=== PATIENT | female | born 1970 | race Two or more races ===

== ENCOUNTER → 2024-08-07 | Outpatient (CLI) | payer MEDICAID, SELFPAY ==
--- NOTE | 2024-08-07 08:38 | XR_ITS ---
Examination: Bilateral hands, 6 views. 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
--- NOTE | 2024-08-07 08:38 | XR_ITS ---
Examination: Bilateral wrists 6 views TECHNIQUE: AP oblique lateral each wrist total 6 views Exam date and time: August 07, 2024 at 0921 hours INDICATIONS: Bilateral wrist pain one year, history right wrist surgery for carpal tunnel ago FINDINGS: Moderate osteopenia Bilateral mild narrowing radiocarpal intercarpal and carpometacarpal joints No erosive arthritis No acute fracture involving either wrist No avascular necrosis IMPRESSION: Bilateral mild narrowing radiocarpal, intercarpal and carpometacarpal joints. No erosive arthritis
== END | disposition home or self-care (01) ==
LOC: CDIM 08:29
PROVIDERS: PCP Family Medicine
DX: M19.042 Primary osteoarthritis, left hand (principal); M19.041 Primary osteoarthritis, right hand; M25.842 Other specified joint disorders, left hand; M25.841 Other specified joint disorders, right hand; M25.832 Other specified joint disorders, left wrist; M25.831 Other specified joint disorders, right wrist
CPT/HCPCS: 73110; 73130

== ENCOUNTER 2025-02-12 15:02 | Emergency (ER) | payer MEDICAID, SELFPAY ==
[2025-02-12 15:03] VITALS: BMI 34.2
[2025-02-12 15:43] VITALS: BP 147/82; PULSE 86; RESP 18; TEMP 36.8; O2SAT 98
--- NOTE | 2025-02-12 15:44 | XR_ITS ---
Examination: Duplex scan of the lower extremity, unilateral left complete Date and time of exam: February 11, 2025 1555 hours INDICATIONS: Left leg pain onset today Technique: Duplex scan of the extremity veins using B-mode/grayscale imaging and Doppler spectral analysis and color flow Attention is directed to internal echogenicity, compression and augmentation involving these veins, color flow assessment, spectral analysis Findings: Major deep venous structures in the extremity demonstrate normal course and caliber. There is no evidence of deep vein thrombosis. Normal color flow and spectral analysis Impression: Negative for DVT..
--- NOTE | 2025-02-12 15:44 | XR_ITS ---
Examination: Knee, left , 3 views Technique: Knee AP, lateral, oblique 3 views Date and time of exam: February 12, 2025, 1645 hours indications INDICATIONS: Patient fell today with injury of the knee, knee pain. FINDINGS: No fracture. Widening of the medial joint space seen with damage to the medial collateral ligament Small knee effusion IMPRESSION: Suspicious for tear or strain of medial collateral ligament, consider elective MRI knee without contrast follow-up
--- NOTE | 2025-02-12 15:45 | PD.EDLOWEX ---
Lower Extremity Injury RME/HPI General Chief Complaint: Extremity Injury, Lower Stated Complaint: L) KNEE COLLAPSED AT WORK TODAY Time Seen by Provider: 02/12/25 15:13 Arrival date/time: 02/12/25 15:02 This is a case of a 54-year-old female who came into the emergency room due to left knee pain and left leg pain history of present illness started patient have on and off pain of the left knee seen by primary care physician x-ray was performed and noted to be normal due to worsening of pain now with pain in the left leg and swelling this patient decided to start consult here in the emergency room denies any injury or trauma Limitations: no limitations Related Data Home Medications ?Medication ?Instructions ?Recorded ?Confirmed estradiol 0.5 mg tablet 0.5 mg PO QDAY 11/25/22 11/25/22 lisinopril 40 mg tablet 40 mg PO QDAY 11/25/22 11/25/22 medroxyprogesterone 5 mg tablet 5 mg PO QDAY 11/25/22 11/25/22 omega 9-nnj-rxf-fish oil 1,200 mg 1 cap PO DAILY 11/25/22 11/25/22 (144 mg-216 mg) capsule (Fish Oil) omeprazole 20 mg capsule,delayed 20 mg PO QDAY 11/25/22 11/25/22 release kiyvjarm-yuu-Qb-FA 1 mg 1 tab PO DAILY 11/25/22 11/25/22 tablet venlafaxine 75 mg capsule,extended 75 mg PO QDAY 11/25/22 11/25/22 release 24 hr (Effexor XR) Previous Rx's ?Medication ?Instructions ?Recorded acetaminophen 500 mg tablet 2 tab PO QIDPRN PRN Pain or fever 08/25/17 (Acetaminophen Extra Strength) #30 tabs meclizine 25 mg tablet 25 mg PO QID PRN dizziness #20 tabs 04/26/23 tramadol 50 mg tablet 50 mg PO Q8H PRN pain #10 tabs 02/12/25 Allergies Allergy/AdvReac Type Severity Reaction Status Date / Time No Known Allergies Allergy Verified 02/12/25 15:06 Review of Systems Constitutional Constitutional: Reports system reviewed and no additional complaints, except as documented, Reports as per HPI, Denies chills and Denies fever(s) ENT Ears, Nose, Mouth, and Throat: Denies neck pain Cardiovascular Cardiovascular: Reports system reviewed and no additional complaints, except as documented, Reports as per HPI, Denies chest pain and Denies dyspnea Respiratory Respiratory: Reports system reviewed and no additional complaints, except as documented, Reports as per HPI and Denies dyspnea Gastrointestinal Gastrointestinal: Reports system reviewed and no additional complaints, except as documented, Reports as per HPI, Denies abdominal pain, Denies nausea and Denies vomiting Genitourinary Genitourinary: Reports system reviewed and no additional complaints, except as documented and Reports as per HPI Musculoskeletal Musculoskeletal: Reports system reviewed and no additional complaints, except as documented, Reports as per HPI, Denies abnormal gait, Denies arthralgias, Denies atrophy, Denies back pain, Denies deformity, Denies joint swelling, Denies limited range of motion, Denies loss of height, Denies muscle cramps, Denies muscle weakness, Denies myalgias, Denies neck pain, Denies numbness, Denies radiating pain into limb, Denies stiffness and Denies tingling Neurologic Neurologic: Reports system reviewed and no additional complaints, except as documented, Reports as per HPI, Denies abnormal gait, Denies numbness and Denies tingling Past Medical History Past Medical History NEUROLOGIC: Negative Neurological Disorders or Seizures CARDIAC: Positive Cardiac Disorders and Hypertension; Negative Congestive Heart Failure RESPIRATORY: Negative Chronic Obstructive Pulmonary Disease (COPD) GASTROINTESTINAL: Negative Gastrointestinal Disorders GENITOURINARY: Negative Genitourinary Disorders or Renal Disease REPRODUCTIVE: Positive Previous Pregnancies MUSCULOSKELETAL: Negative Musculoskeletal Disorders ENDOCRINE: Negative Endocrine Disorders, Diabetes Mellitus Type 1 or Diabetes Mellitus Type 2 HEMATOLOGIC: Negative Blood Disorders PSYCHO/SOCIAL: Positive Depression and Anxiety OTHER HISTORY: Positive Hospitalization (surgery); Negative Autoimmune Disease, Blood Transfusions, Blood Transfusion Reaction, Anesthesia Reactions or Cancer Family History FAMILY HISTORY: Positive Family Surgery; Negative Family Psychiatric Problems, Family Respiratory Disorders, Family Cardiac Disorders, Family Gastrointestinal Problems, Family Cancer or Family Anesthesia Reaction Surgical History SURGICAL: Positive Section (2) Social History SMOKING STATUS: Never smoker ED Exam General Limitations: Present no limitations General appearance: Present alert, in no apparent distress and other (Patient is awake alert oriented not in distress nontoxic looking) Head Head exam: Present atraumatic, normocephalic and normal inspection Eye Eye exam: Present normal appearance, PERRL and EOMI ENT ENT exam: Present normal exam, normal oropharynx and mucous membranes moist Neck Neck exam: Present normal inspection, full ROM and trachea midline; Absent tenderness, meningismus or lymphadenopathy Chest Chest inspection: Present normal inspection and symmetric chest wall rise; Absent tenderness, rash or abscess Respiratory Respiratory exam: Present normal lung sounds bilaterally; Absent respiratory distress, wheezes, stridor, accessory muscle use or prolonged expiratory phase Cardiovascular Cardiovascular exam: Present regular rate and normal rhythm; Absent bradycardia, tachycardia, normal heart sounds, systolic murmur or diastolic murmur Abdominal Exam Abdominal exam: Present soft and normal bowel sounds; Absent distention, tenderness, guarding, rebound or rigidity Extremities Exam Extremities exam: Present normal inspection and full ROM Expanded Lower Extremity Exam Hip/Pelvis exam: Present normal inspection and full ROM; Absent tenderness or swelling Upper leg exam: Present normal inspection and full ROM; Absent tenderness or swelling Knee exam: Present tenderness (Noted moderate tenderness on the left anterior knee no prepatellar tenderness no swelling), swelling (Mild swelling on the left anterior knee) and other (ROM limited pulses were full and equal capillary refill less than 2 seconds sensory reflex normal); Absent abrasion, laceration, ecchymosis, deformity, crepitus, dislocation, erythema, effusion, anterior drawer sign, posterior draw sign, pain with valgus, laxity with valgus, pain with varus, laxity with varus or knee extension intact Lower leg exam: Present normal inspection, full ROM, tenderness (Mild tenderness on the left anterior leg), swelling (Mild swelling noted) and other (No calf tenderness negative Bunch signs); Absent abrasion, laceration, ecchymosis, deformity, crepitus, dislocation, erythema, palpable cord, Homans' sign or Achilles tendon intact Back Exam Back exam: Present normal inspection and full ROM Neurological Exam Neurological exam: Present alert, oriented X3, CN II-XII intact, normal gait and reflexes normal; Absent motor sensory deficit Psychiatric Psychiatric exam: Present normal affect and normal mood Skin Skin exam: Present warm, dry, intact and normal color Course Quality Measures none Orders Category Date Time Status Apply knee immobilizer NOW Care 02/12/25 17:50 Active US venous doppler LE LT Stat Exams 02/12/25 15:44 Completed XR knee LT 3V Stat Exams 02/12/25 15:44 Taken HYDROcodone*/APAP 5/325 [Homer 5/325] Med 02/12/25 15:44 Discontinued 1 tab PO X1 ONE Ketorolac Inj [Toradol Inj] Med 02/12/25 15:44 Discontinued 60 mg IM X1 ONE Vital Signs Vital signs: Vital Signs Temperature 98.2 F 02/12/25 15:43 Pulse Rate 86 02/12/25 15:43 Respiratory Rate 18 02/12/25 15:43 Blood Pressure 147/82 H 02/12/25 15:43 Pulse Oximetry (%) 98 02/12/25 15:43 Oxygen Delivery Method Room Air 02/12/25 15:43 Patient is afebrile not tachycardic not tachypneic BP stable not hypoxic oxygen saturation is 98% in room air Extremity Injury, Lower MDM Narrative MDM Narrative:: This is a case of a 54-year-old female who came into the emergency room due to left knee pain and left leg pain history of present illness started patient have on and off pain of the left knee seen by primary care physician x-ray was performed and noted to be normal due to worsening of pain now with pain in the left leg and swelling this patient decided to start consult here in the emergency room denies any injury or trauma physical examination patient is awake alert oriented not in distress not toxic looking patient noted to have tenderness on the anterior side of the left knee no prepatellar tenderness no swelling with mild swelling of the anterior left knee no crepitation no deformity no redness ROM limited pulses were full and equal capillary refill less than 2 seconds leg exam is normal no tenderness no swelling no calf tenderness negative Homans signs negative Bunch sign patient venous ultrasound is negative for DVT x-ray showed no fracture no dislocation knee immobilizer was applied with to the patient's left knee patient tolerated well neurovascular intact patient was given Toradol and Homer for pain patient was advised to follow-up with PCP to be referred to orthopedic surgeon for further evaluation and treatment and for possible MRI to rule out meniscus or ligament injury she needs also to see a pain management doctor for pain control for any worsening symptoms or any emergent concerns she will return in the emergency room immediately or call 911 Patient was discharged with comfortable condition walking with stable gait. Patient verbalized no further complains explained diagnosis and answered patient question. Patient is comfortable with the proposed management plan including the need to follow up with his/her primary care physician and any specialist if applicable Discussed patient for any urgent condition or worsening sx, He/She needed to go to emergency room immediately or call 911. Patient acknowledge the responsibility to follow up as instructed and to monitor her/his symptoms. For any persistence of the symptoms for more than 3-5 days return precaution advised. Discussed the result of the test and was given printed discharge instruction Patient data External records reviewed:: [facility] previous records Clinical information provided by:: patient Social determinants that could affect healthcare access:: none Patient has the following chronic illnesses:: None How is presenting disease/condition affected by chronic disease/condition?: no chronic disease Evaluation data The following diagnostics were reviewed and interpreted by me:: radiology exam(s) Lab and/or radiology exams considered but not ordered:: Reviewed Interpretation Summary: Reviewed Medications / Prescriptions Medications or Prescriptions considered but not ordered:: Given Medication administrations:: Medication Administration History Discontinued Medications Hydrocodone Bitart/Acetaminophen (Hydrocodone/Apap 5/325 Tablet) 1 tab PO X1 ONE Stop: 02/12/25 15:45 Last Admin: 02/12/25 15:53 Dose: 1 tab Documented By: OA Ketorolac Tromethamine (Ketorolac Inj 60 Mg/2 Ml Vial) 60 mg IM X1 ONE Stop: 02/12/25 15:45 Last Admin: 02/12/25 15:53 Dose: 60 mg Documented By: OA Given Consultations Consultation(s) initiated? (list below): No Diagnosis Extremity Injury, Lower Differential Diagnosis: other (Fracture meniscus injury ligament injury DVT sprain strain chronic pain) Most likely diagnosis given after review of the tests above:: Left chronic knee pain Admission Indicated Admission indicated?: not indicated Explain why admission is indicated or not indicated:: Not indicated Admission Request Was there a request for admission?: No Admission Attestation Admission request attestation: Not indicated Disposition Plan Disposition Plan: Discharge Discharge Attestation Discharge Attestation: The patient and all family members were given an opportunity to ask questions and understood the discharge instructions. Discharge instructions specifically effects, indications for sooner follow up or return to the emergency department, and the expected course of current diagnosis. Patient condition: Stable Discharge Plan Plan Patient Disposition: HOME (Self Care) Patient condition on transfer: Stable Prescriptions/Referrals Prescriptions/Med Rec: New tramadol 50 mg tablet 50 mg PO Q8H MDD max 4 tabs per day PRN (Reason: pain) Qty: 10 0RF No Action acetaminophen [Acetaminophen Extra Strength] 500 MG tablet 2 tab PO QIDPRN PRN (Reason: Pain or fever) Qty: 30 0RF venlafaxine [Effexor XR] 75 mg Capsule,Extended Release 24hr 75 mg PO QDAY medroxyprogesterone 5 mg Tablet 5 mg PO QDAY 1 mg Tablet 1 tab PO DAILY omeprazole 20 mg Capsule,Delayed Release(Dr/Ec) 20 mg PO QDAY estradiol 0.5 mg Tablet 0.5 mg PO QDAY Rx Instructions: off 5 days; repeat cycle lisinopril 40 mg Tablet 40 mg PO QDAY omega 4-zut-eou-fish oil [Fish Oil] 1,200 (144-216) mg Capsule 1 cap PO DAILY meclizine 25 mg tablet 25 mg PO QID PRN (Reason: dizziness) Qty: 20 0RF Referrals: Arnulfo Menon MD [Primary Care Provider] - In 1 week Problem List Clinical Impression: Chronic pain of left knee, Leg pain Patient/Caregiver Discharge Instructions Education Materials: Knee Pain, ED Chronic Pain, ED Knee Immobilizer, ED RICE Additional Instructions: Follow-up with your primary care physician in 2 days for reevaluation and to be referred to orthopedic surgeon for further evaluation and treatment of left chronic knee pain for possible MRI to rule out meniscus or ligament injury you also need to be referred to pain management doctor for pain control recurrence persistent worsening symptoms or any emergent concerns such as numbness weakness tingling sensation call 911 or go to the nearest emergency room take your medication as directed ice pack and warm compress as needed for pain Print Language: Zambian Stand Alone Forms: Bela Award Info., Patient Portal Info Letter LORENZA/VERA Supervising Physician LORENZA/VERA Supervising Physician: Dr Irizarry
[2025-02-12] MEDS: KETOROLAC INJ 60 MG/2 ML VIAL IM (15:53)
[2025-02-12] MEDS: HYDROcodone/APAP 5/325 TABLET 1 TAB PO (15:53)
== END 2025-02-12 18:07 | disposition home or self-care (01) ==
PROVIDERS: Emergency Provider Emergency Medicine; PCP Family Medicine
DX: S89.92XA Unspecified injury of left lower leg, initial encounter (principal); M79.605 Pain in left leg; W19.XXXA Unspecified fall, initial encounter
CPT/HCPCS: 73562; 93971; 96372; 99283; J1885; A9270

== ENCOUNTER 2025-03-22 13:40 | Outpatient (AMB) | payer MEDICAID, SELFPAY ==
--- NOTE | 2025-03-22 13:52 | ORTHONT_ITS ---
Vital signs 03/22/25 14:00 Height 1.52 m Height Method Measured Weight 85.275 kg Weight Measurement Method Standing Scale BMI 36.7 BP 147/92 H Blood Pressure Source Automatic Cuff Blood Pressure Location Left Upper Arm Position Sitting Respiration 20 Pulse 80 Pulse Source Monitor Temp 97.5 F Temp Source Temporal Artery Scan Pulse Oximetry (%) 96 Oxygen Delivery Method Room Air Med/Allergies Allergies & Medications Allergies No Known Allergies Allergy (Verified 03/22/25 14:01) Medication Reconciliation acetaminophen 500 mg tablet (Acetaminophen Extra Strength) 2 tab PO QIDPRN PRN P ain or fever #30 tabs 08/25/17 [Rx Confirmed 03/22/25] estradiol 0.5 mg tablet 0.5 mg PO QDAY 11/25/22 [History Confirmed 03/22/25] lisinopril 40 mg tablet 40 mg PO QDAY 11/25/22 [History Confirmed 03/22/25] medroxyprogesterone 5 mg tablet 5 mg PO QDAY 11/25/22 [History Confirmed 03/22/25] omega 4-xeo-uxw-fish oil 1,200 mg (144 mg-216 mg) capsule (Fish Oil) 1 cap PO DAILY 11/25/22 [History Confirmed 03/22/25] omeprazole 20 mg capsule,delayed release 20 mg PO QDAY 11/25/22 [History Confirmed 03/22/25] xzmfrmmj-tay-Wr-FA 1 mg tablet 1 tab PO DAILY 11/25/22 [History Confirmed 03/22/25] venlafaxine 75 mg capsule,extended release 24 hr (Effexor XR) 75 mg PO QDAY 11/25/22 [History Confirmed 03/22/25] meclizine 25 mg tablet 25 mg PO QID PRN dizziness #20 tabs 04/26/23 [Rx Confirmed 03/22/25] tramadol 50 mg tablet 50 mg PO Q8H PRN pain #10 tabs 02/12/25 [Rx Confirmed 03/22/25] Exam Exam Patient is in no acute distress and is cooperative with the examination today. Breathing is nonlabored. Patient has a normal mood and affect. Bilateral extremities were evaluated and demonstrates sensation intact to light touch. Palpable pedal pulses are present. No significant edema is present. Bilateral hips were examined. The patient has no pain with log roll of the hips. Internal rotation to 30 degrees and external rotation to 30 degrees is painless. Negative FADIR. Right knee was examined today. The right knee is in reasonable alignment. Range of motion from 0-120 degrees. Knee is stable to varus and valgus as well as AP translation with <5mm. Patient has a negative McMurrays. There is no pain with patellofemoral compression and no crepitus noted. The knee is nontender to palpation. Left knee was examined today. The left knee is in varus alignment. Range of motion from 0-115 degrees. Knee is stable to varus and valgus as well as AP translation with <5mm. Patient has a negative McMurrays. There is no pain with patellofemoral compression and no crepitus noted. The knee is tender to palpation medially. X-rays are nonweightbearing. Demonstrates moderate arthritis of the left knee. I also reviewed an MRI which demonstrates a degenerative tear of the medial meniscus as well as a lateral discoid meniscus. Assessment and Plan Problem List (1) Arthritis of left knee: Status: Acute Plan: Patient is a 54-year-old female with left knee pain and left knee arthritis. We discussed treatment options. I discussed meloxicam as well as injections. The patient wants disability. I discussed with the patient that I would want to see x-rays and I would likely continue with conservative treatment. We will see her back after her x-rays Office Procedures GNS Level of Care Nursing/Assessment Patient Status: Initial/New Patient Nursing Assessment/Reassesment: Medication Reconciliation, Orthostatic Vitals, Update PMH in EMR and Vital Signs Coordination of Care: Complex Care and Chronic Disease 1-5, Education Complex Pt/Fam, Consent,records obtained, informed consent, Lab and Imaging orders, Results/Orders obtained and Staff clarify orders Special Needs: Language special needs New Patient Charge New Patient Point Assignment: 1119 New Patient Point Charge: TEMPORARY DATA ENTRY CLERK Level 4 ([id number]) MA Intake Visit Data Collection New Patient or Established: New Patient (never been to [facility]) Reason for Visit:: PAIN LEFT KNEE Seen by Clinical Staff ONLY (RN/MA): No Rubberizing Mechanic Required: Yes PCP or OBGYN visit in last 3 months: Yes Hx Now: No Do You Feel Safe at Home: Yes Authorities Contacted: N/A Questionairres Past Medical History Past Medical History Have you ever been diagnosed with any of the following: Neurological Problems Seizures: No Cardiology Problems Congestive Heart Failure: No Hypertension: Yes Respiratory Problems Chronic Obstructive Pulmonary Disease (COPD): No Genital/Urinary Problems Renal Disease: No Reproductive Problems Previous Pregnancies: Yes Endocrine Problems Diabetes Mellitus Type 1: No Diabetes Mellitus Type 2: No Psychologic Problems Depression: Yes Anxiety: Yes Other Problems Hospitalization: Yes (surgery) Blood Transfusions: No Blood Transfusion Reaction: No Anesthesia Reactions: No Cancer: No Subjective Visit Visit for: new patient and knee Immunization / Flu Flu Vaccine in the Last 12 Months: Yes Flu Vaccine Exclusion Criteria: Already Received History of Present Illness Chief complaint: left knee pain Lori is a 54-year-old female with left knee pain and left knee arthritis with a degenerative meniscal tear. She has been having pain for 3 months. She had an MRI that demonstrated a degenerative meniscal tear as well as arthritis. On x- rays she has moderate arthritis. She reports that she wants to be on disability and is asked this numerous times for this. She has not had any injections. She has tried anti-inflammatories in the past. Personal History Red flag PMH: none BMI Counceling provided: Yes Pain Pain level (0-10): 7 Pain location: inside (medial) and outside (lateral) Pain quality: sharp Pain timing: night, increases with activity and stairs Associated signs & symptoms: weakness Ambulatory data Ambulatory device: none Treatments Number of previous injections: 0 Improvement with previous injections: No Number of Physical Therapy sessions: 0 Improvement with PT: No Improvement with NSAIDS: no Review of Systems Review of Systems: All systems negative unless otherwise noted in HPI.
[2025-03-22 14:00] VITALS: BP 147/92; PULSE 80; RESP 20; TEMP 36.4; O2SAT 96; BMI 36.7
--- NOTE | 2025-03-22 14:08 | XR_ITS ---
Examination: Bilateral AP knees single view Left knee PA and lateral axial 3 views TECHNIQUE: Bilateral AP knees standing single view Left knee PA standing flexion, standing lateral, axial left knee 3 views total 4 views Date and time: March 22, 2025, 1421 hours INDICATIONS: Left knee pain beginning 3 months ago. FINDINGS: Moderate to advanced narrowing medial joint space left knee No fracture or patellar dislocation Moderate knee effusion Mild to moderate narrowing medial joint space right knee IMPRESSION: Moderate to advanced narrowing medial joint space left knee
== END 2025-03-22 14:16 | disposition home or self-care (01) ==
LOC: HODSRG 13:40
PROVIDERS: PCP Family Medicine; Referring Provider Family Medicine; Supervising Provider Orthopaedic Surgery Adult Reconstructive Orthopaedic Surgery; Visit Provider Orthopaedic Surgery Adult Reconstructive Orthopaedic Surgery
DX: M17.12 Unilateral primary osteoarthritis, left knee (principal); M25.562 Pain in left knee; S83.207A Unspecified tear of unspecified meniscus, current injury, left knee, initial encounter; X58.XXXA Exposure to other specified factors, initial encounter; I10 Essential (primary) hypertension
CPT/HCPCS: 73564; 99204; G0463